=== PATIENT | female | born 1935 | race Caucasian/White ===

== ENCOUNTER 2023-04-17 13:01 | Outpatient (REF) | payer OTHER, SELFPAY ==
[2023-04-17 13:39] LABS: Appearance Urine Clear (Clear); Basophils Percent Auto 0.5 % (0.0-3.0); Bilirubin Urine Negative (Negative); Blood Urine Negative (Negative); Color Urine Yellow (Yellow); Glucose Urine Negative (Negative); Hematocrit 32.8 % (33.0-51.0); Hemoglobin* 10.8 gm/dL (12.0-16.0); Immature Granulocytes Pct Auto 0.4 %; Ketones Urine Negative (Negative); Leukocyte Esterase Urine Negative (Negative); Lymphocytes Percent Auto 14.1 % (20-44); Mean Corpuscular HGB Conc 33 gm/dL (32-36); Mean Corpuscular Hemoglobin 30 pg (26-34); Mean Corpuscular Volume 92 fL (80-100); Monocytes Percent Auto 10.2 % (0.0-11.0); Neutrophils Percent Auto 74.8 % (42.0-72.0); Nitrite Urine Negative (Negative); Platelet Count* 80 K/uL (140-440); Protein Urine Negative (Negative); RDW Coefficient of Variation % 14.5 % (11.5-15.5); Red Blood Count 3.55 m/uL (4.00-5.20); White Blood Count* 15.04 K/uL (4.50-11.00); pH Urine 6.5 (5.0-8.5)
[2023-04-17 13:43] LABS: Slide Review Reflex No
[2023-04-17 13:52] LABS: Chloride* 99 mmol/L (96-114); Potassium* 4.1 mmol/L (3.6-5.1); Sodium* 133 mmol/L (135-149)
[2023-04-17 13:55] LABS: Anion Gap 9 mEq/L (7-15); Blood Urea Nitrogen* 44 mg/dL (7-30); Calcium* 8.7 mg/dL (8.4-10.6); Carbon Dioxide* 25 mmol/L (20-32); Creatinine* 1.2 mg/dL (0.5-1.5); Estimated Glomerular Filt Rate 44 ml/min; Glucose* 135 mg/dL (60-115)
== END 2023-04-17 13:02 | disposition home or self-care (01) ==
LOC: NPINS 13:01
PROVIDERS: PCP Family Medicine; Visit Provider Family Medicine
DX: J44.9 Chronic obstructive pulmonary disease, unspecified (principal)
CPT/HCPCS: 80048; 81003; 85025; 87086